=== PATIENT | female | born 2000 | race Two or more races ===

== ENCOUNTER 2023-04-23 20:41 | Emergency (ER) | payer OTHER ==
[~2023-04-23] VITALS: Ht 160 cm; Wt 72.6 kg
[2023-04-23] MEDS ORDERED: METHYLPREDNISOLONE SOD SUCC 125 MG VIAL IV STA (21:13)
[2023-04-23] MEDS ORDERED: ALBUTEROL SULFATE 3 ML/2.5 MG AMPUL.NEB IH ONE (21:15)
[2023-04-23] MEDS ORDERED: IPRATROPIUM BROMIDE 0.5 MG/2.5 ML AMPUL.NEB IH ONE (21:15)
[2023-04-23] MEDS ORDERED: DEXAMETHASONE4 MG PO (23:15)
[2023-04-23] MEDS ORDERED: SINGULAIR10 MG PO (23:15)
[2023-04-23] MEDS ORDERED: ZYRTEC10 MG PO (23:15)
== END 2023-04-23 23:17 | disposition home or self-care (01) ==
LOC: ER 20:41
DX: J45.998 Other asthma (principal)